=== PATIENT | male | born 1995 | race Caucasian/White ===

== ENCOUNTER 2021-06-25 16:05 | Emergency (ER) | payer BC, MEDICAID ==
[~2021-06-25] VITALS: Ht 182.9 cm; Wt 75.0 kg
[2021-06-25 16:22] VITALS: BP 119/89
[2021-06-25 18:12] LABS: BASOPHILS # (AUTO) 0.1 X10'3 (0-0.2); BASOPHILS % (AUTO) 1.1 % (0-1); EOSINOPHILS # (AUTO) 0.1 X10'3 (0-0.9); EOSINOPHILS % (AUTO) 1.5 % (0-6); HEMATOCRIT 47.5 % (42.0-52.0); HEMOGLOBIN 16.4 g/dl (14.0-17.9); LYMPHOCYTES # (AUTO) 3.1 X10'3 (1.1-4.8); LYMPHOCYTES % (AUTO) 34.1 % (21-51); MEAN CORPUSCULAR HEMOGLOBIN 31.6 PG (27.0-31.0); MEAN CORPUSCULAR HGB CONC 34.5 g/dL (33.0-36.5); MEAN CORPUSCULAR VOLUME 91.8 FL (78-98); MEAN PLATELET VOLUME 8.3 FL (7.4-10.4); MONOCYTES # (AUTO) 0.7 X10'3 (0-0.9); NEUTROPHILS % (AUTO) 55.3 % (42-75); PLATELET COUNT 310 X10'3 (140-440); RED BLOOD COUNT 5.17 X10'6 (4.70-6.10); RED CELL DISTRIBUTION WIDTH 13.9 % (11.5-14.5)
== END 2021-06-25 19:07 | disposition home or self-care (01) ==
LOC: ER 16:06
DX: J06.9 Acute upper respiratory infection, unspecified (principal); Z20.822 Contact with and (suspected) exposure to COVID-19; F17.200 Nicotine dependence, unspecified, uncomplicated
CPT/HCPCS: 36415; 71045; 85025; 87635; 99284; C9803

== ENCOUNTER 2021-08-09 19:07 | Emergency (ER) | payer BC, MEDICAID ==
[~2021-08-09] VITALS: Ht 182.9 cm; Wt 77.2 kg
[2021-08-09 20:21] LABS: BASOPHILS # (AUTO) 0.1 X10'3 (0-0.2); BASOPHILS % (AUTO) 0.8 % (0-1); EOSINOPHILS # (AUTO) 0.2 X10'3 (0-0.9); EOSINOPHILS % (AUTO) 2.2 % (0-6); HEMATOCRIT 42.4 % (42.0-52.0); HEMOGLOBIN 14.6 g/dl (14.0-17.9); LYMPHOCYTES # (AUTO) 3.3 X10'3 (1.1-4.8); LYMPHOCYTES % (AUTO) 39.9 % (21-51); MEAN CORPUSCULAR HEMOGLOBIN 31.5 PG (27.0-31.0); MEAN CORPUSCULAR HGB CONC 34.5 g/dL (33.0-36.5); MEAN CORPUSCULAR VOLUME 91.4 FL (78-98); MEAN PLATELET VOLUME 8.1 FL (7.4-10.4); MONOCYTES # (AUTO) 0.5 X10'3 (0-0.9); MONOCYTES % (AUTO) 6.4 % (2-12); NEUTROPHILS # (AUTO) 4.1 X10'3 (1.8-7.7); NEUTROPHILS % (AUTO) 50.7 % (42-75); PLATELET COUNT 259 X10'3 (140-440); RED BLOOD COUNT 4.64 X10'6 (4.70-6.10); RED CELL DISTRIBUTION WIDTH 13.7 % (11.5-14.5); WHITE BLOOD COUNT 8.2 X10'3 (4.5-11.0)
[2021-08-09 20:30] LABS: ALANINE AMINOTRANSFERASE 31 U/L (12-78); ALBUMIN 4.1 G/DL (3.4-5.0); ALBUMIN/GLOBULIN RATIO 1.1 (1.1-1.5); ALKALINE PHOSPHATASE 109 IU/L (46-116); ANION GAP 11 (8-16); ASPARTATE AMINO TRANSFERASE 21 U/L (10-37); BLOOD UREA NITROGEN 9 MG/DL (7-18); BUN/CREATININE RATIO 9.3 (5.4-32.0); CHLORIDE 107 MMOL/L (99-107); CREATININE 0.97 MG/DL (0.60-1.10); GLUCOSE 96 MG/DL (70-104); LIPASE 84 U/L (73-393); POTASSIUM 3.9 MMOL/L (3.5-5.1); SODIUM 145 MMOL/L (135-145); TOTAL CARBON DIOXIDE 27.4 MMOL/L (24-32); TOTAL PROTEIN 7.8 G/DL (6.4-8.2); eGFR > 90 ML/MIN
[2021-08-09 22:47] LABS: CLARITY,URINE SLIGHTLY CLOUDY (Clear); COLOR,URINE YELLOW (Yellow); PH,URINE 7.5 (4.8-8.0); UA COLLECTION TYPE URINAL
[2021-08-09 22:48] LABS: GLUCOSE, URINE NEGATIVE (Neg); KETONES,URINE TRACE mg/dl (Neg); LEUKOCYTE ESTERASE ,URINE NEGATIVE (Neg); NITRITES, URINE NEGATIVE (Neg); OCCULT BLOOD,URINE NEGATIVE (Neg); PROTEIN,URINE NEGATIVE (Neg); UROBILINOGEN,URINE 0.2 E.U/dL (0.2-1.0)
[2021-08-09 22:53] LABS: AMORPHOUS PHOSPHATES 2+; BACTERIA,URINE FEW /HPF (Neg); RBC,URINE NONE SEEN /HPF (0-2); SQUAMOUS EPITHELIAL CELL,UR FEW /LPF (FEW); WBC,URINE NONE SEEN /HPF (0-4)
[2021-08-09 22:56] VITALS: BP 127/83
[2021-08-10] MEDS ORDERED: METR-159 PO (00:37)
[2021-08-10] MEDS ORDERED: CIPR-259 PO (00:37)
== END 2021-08-10 01:02 | disposition home or self-care (01) ==
LOC: ER 19:07
DX: K52.9 Noninfective gastroenteritis and colitis, unspecified (principal); K42.9 Umbilical hernia without obstruction or gangrene; R10.84 Generalized abdominal pain; R11.0 Nausea; J45.909 Unspecified asthma, uncomplicated; F17.200 Nicotine dependence, unspecified, uncomplicated; F12.90 Cannabis use, unspecified, uncomplicated; Z90.89 Acquired absence of other organs; Z72.89 Other problems related to lifestyle; Z79.2 Long term (current) use of antibiotics
CPT/HCPCS: 36415; 74176; 80053; 81001; 83690; 85025; 99284

== ENCOUNTER 2021-09-30 11:01 | Emergency (ER) | payer BC, MEDICAID ==
[~2021-09-30] VITALS: Ht 182.9 cm; Wt 75.0 kg
--- NOTE | 2021-09-30 11:11 | NUR ---
pulling records from [facility]
[2021-09-30] MEDS ORDERED: ketorolac tromethamine 15mg/ml inj. IM ONE (11:25)
[2021-09-30] MEDS ORDERED: ketorolac trometh. 30mg/ml inj. IM ONE (11:30)
[2021-09-30] MEDS ORDERED: ondansetron 4mg rapidly disintigrating tab PO ONE (11:30)
[2021-09-30 11:45] LABS: BASOPHILS % (AUTO) 0.3 % (0-1); EOSINOPHILS # (AUTO) 0.3 X10'3 (0-0.9); EOSINOPHILS % (AUTO) 4.1 % (0-6); HEMATOCRIT 40.7 % (42.0-52.0); HEMOGLOBIN 14.6 g/dl (14.0-17.9); LYMPHOCYTES # (AUTO) 1.2 X10'3 (1.1-4.8); LYMPHOCYTES % (AUTO) 17.5 % (21-51); MEAN CORPUSCULAR HEMOGLOBIN 32.2 PG (27.0-31.0); MEAN CORPUSCULAR HGB CONC 35.9 g/dL (33.0-36.5); MEAN CORPUSCULAR VOLUME 89.8 FL (78-98); MEAN PLATELET VOLUME 7.8 FL (7.4-10.4); MONOCYTES # (AUTO) 0.3 X10'3 (0-0.9); MONOCYTES % (AUTO) 4.5 % (2-12); NEUTROPHILS # (AUTO) 5.1 X10'3 (1.8-7.7); NEUTROPHILS % (AUTO) 73.6 % (42-75); PLATELET COUNT 258 X10'3 (140-440); RED BLOOD COUNT 4.53 X10'6 (4.70-6.10); RED CELL DISTRIBUTION WIDTH 13.4 % (11.5-14.5); WHITE BLOOD COUNT 6.9 X10'3 (4.5-11.0)
[2021-09-30 12:00] LABS: ALANINE AMINOTRANSFERASE 55 U/L (12-78); ALBUMIN 3.7 G/DL (3.4-5.0); ALKALINE PHOSPHATASE 88 IU/L (46-116); ANION GAP 10 (8-16); ASPARTATE AMINO TRANSFERASE 17 U/L (10-37); BLOOD UREA NITROGEN 14 MG/DL (7-18); BUN/CREATININE RATIO 14.7 (5.4-32.0); CALCIUM 8.7 MG/DL (8.5-10.1); CHLORIDE 103 MMOL/L (99-107); CREATININE 0.95 MG/DL (0.60-1.10); GLUCOSE 98 MG/DL (70-104); LIPASE < 50 U/L (73-393); POTASSIUM 3.4 MMOL/L (3.5-5.1); SODIUM 140 MMOL/L (135-145); TOTAL CARBON DIOXIDE 26.7 MMOL/L (24-32); TOTAL PROTEIN 7.3 G/DL (6.4-8.2); eGFR > 90 ML/MIN
[2021-09-30 12:25] VITALS: BP 114/64
[2021-09-30 12:34] LABS: PLATELET ESTIMATE NORMAL; SPHEROCYTES FEW
[2021-09-30 12:35] LABS: STOMATOCYTES FEW
== END 2021-09-30 12:52 | disposition home or self-care (01) ==
LOC: ER 11:02
DX: K42.9 Umbilical hernia without obstruction or gangrene (principal); J45.909 Unspecified asthma, uncomplicated; F12.10 Cannabis abuse, uncomplicated
CPT/HCPCS: 36415; 80053; 83690; 85008; 85025; 96372; 99284; J1885

== ENCOUNTER 2023-01-27 16:03 | Emergency (ER) | payer MEDICAID ==
[~2023-01-27] VITALS: Ht 172.7 cm; Wt 79.5 kg
[2023-01-27 16:17] VITALS: BP 121/81
[2023-01-27 16:48] LABS: CLARITY,URINE CLEAR (Clear); COLOR,URINE YELLOW (Yellow); GLUCOSE, URINE NEGATIVE (Neg); KETONES,URINE TRACE mg/dl (Neg); LEUKOCYTE ESTERASE ,URINE NEGATIVE (Neg); NITRITES, URINE NEGATIVE (Neg); OCCULT BLOOD,URINE NEGATIVE (Neg); PROTEIN,URINE NEGATIVE (Neg)
[2023-01-27 16:52] LABS: UA COLLECTION TYPE NON-SPECIFIED
[2023-01-27] MEDS ORDERED: IBUP-1986 PO (18:01)
[2023-01-27] MEDS ORDERED: DOXY-1 PO (18:01)
== END 2023-01-27 18:14 | disposition home or self-care (01) ==
LOC: ER 16:05
DX: N45.1 Epididymitis (principal); J45.909 Unspecified asthma, uncomplicated; F12.90 Cannabis use, unspecified, uncomplicated; Z98.890 Other specified postprocedural states
CPT/HCPCS: 36415; 76870; 81003; 87491; 93976; 99284

== ENCOUNTER 2023-02-08 16:08 | Emergency (ER) | payer MEDICAID ==
[~2023-02-08] VITALS: Ht 182.9 cm; Wt 76.6 kg
[~2023-02-08 16:08] MED LIST: DOXY-1 PO; IBUP-1986 PO
[2023-02-08 16:16] VITALS: BP 141/81
--- NOTE | 2023-02-08 16:30 | NUR ---
Pt in [facility]. Pt c/o L foot pain x3 days. Pt states he is unable to walk on it. Pt educated to POC. Pt in agreement. Pending providers eval and treatment.
[2023-02-08] MEDS ORDERED: ketorolac trometh. 30mg/ml inj. IM ONE (17:29)
== END 2023-02-08 18:26 | disposition home or self-care (01) ==
LOC: ER 16:08
DX: M25.561 Pain in right knee (principal); M25.511 Pain in right shoulder; J45.909 Unspecified asthma, uncomplicated; F12.90 Cannabis use, unspecified, uncomplicated; Z98.890 Other specified postprocedural states
CPT/HCPCS: 73030; 73564; 96372; 99284; J1885

== ENCOUNTER 2023-02-13 15:37 | Emergency (ER) | payer MEDICAID ==
[~2023-02-13] VITALS: Ht 175.3 cm; Wt 110.0 kg
[~2023-02-13 15:37] MED LIST changes: -DOXY-1 PO
[2023-02-13 17:03] VITALS: BP 118/83
[2023-02-13 17:25] LABS: ALANINE AMINOTRANSFERASE 18 U/L (12-78); ALBUMIN 3.1 G/DL (3.4-5.0); ALBUMIN/GLOBULIN RATIO 0.7 (1.1-1.5); ALKALINE PHOSPHATASE 86 IU/L (46-116); ANION GAP 13 (8-16); ASPARTATE AMINO TRANSFERASE 11 U/L (10-37); BILIRUBIN,TOTAL 1.7 MG/DL (0.1-1.0); BLOOD UREA NITROGEN 8 MG/DL (7-18); BUN/CREATININE RATIO 10.5 (10.0-20.0); C-REACTIVE PROTEIN 17.81 MG/DL (0.0-0.5); CALCIUM 8.8 MG/DL (8.5-10.1); CHLORIDE 98 MMOL/L (99-107); CREATININE 0.76 MG/DL (0.60-1.10); GLUCOSE 86 MG/DL (70-104); POTASSIUM 3.1 MMOL/L (3.5-5.1); SODIUM 133 MMOL/L (135-145); TOTAL CARBON DIOXIDE 21.7 MMOL/L (24-32); TOTAL PROTEIN 7.4 G/DL (6.4-8.2); eGFR > 90 ML/MIN
[2023-02-13 17:54] LABS: HEMATOCRIT 41.2 % (42.0-52.0); HEMOGLOBIN 14.6 g/dl (14.0-17.9); MEAN CORPUSCULAR HEMOGLOBIN 31.7 PG (27.0-31.0); MEAN CORPUSCULAR HGB CONC 35.4 g/dL (33.0-36.5); MEAN CORPUSCULAR VOLUME 89.7 FL (78-98); RED BLOOD COUNT 4.59 X10'6 (4.70-6.10); WHITE BLOOD COUNT 11.7 X10'3 (4.5-11.0)
[2023-02-13 17:55] LABS: EOSINOPHILS % (AUTO) 0.3 % (0-6); LYMPHOCYTES % (AUTO) 18.7 % (21-51); MONOCYTES % (AUTO) 3.5 % (2-12); NEUTROPHILS % (AUTO) 77.1 % (42-75); PLATELET COUNT 319 X10'3 (140-440)
[2023-02-13 17:56] LABS: BASOPHILS % (AUTO) 0.4 % (0-1); HIV ANTIBODY 1&2 RAPID NON-REACTIVE (Neg); LYMPHOCYTES # (AUTO) 2.2 X10'3 (1.1-4.8); MONOCYTES # (AUTO) 0.4 X10'3 (0-0.9); NEUTROPHILS # (AUTO) 9.1 X10'3 (1.8-7.7)
[2023-02-13] MEDS ORDERED: triamcinolone acetonide 40mg/ml inj IM ONE (18:45)
[2023-02-13] MEDS ORDERED: famotidine 20mg tablet PO ONE (18:45)
[2023-02-13] MEDS ORDERED: diphenhydrAMINE 25mg capsule PO ONE (18:45)
[2023-02-13] MEDS ORDERED: HYDROcodone/acetaminophen 10/325mg tab PO ONE (18:45)
[2023-02-13] MEDS ORDERED: DIPH25CA83 PO (18:55)
[2023-02-13] MEDS ORDERED: DEC4T PO (18:55)
[2023-02-13] MEDS ORDERED: FAMO-128 PO (18:55)
[2023-02-13] MEDS ORDERED: HYDR-3965 PO (18:55)
[2023-02-14] MEDS ORDERED: DIPH25CA83 PO (00:23)
[2023-02-14] MEDS ORDERED: FAMO-128 PO (00:23)
[2023-02-14] MEDS ORDERED: DEC4T PO (00:23)
[2023-02-14] MEDS ORDERED: HYDR-3965 PO (00:23)
== END 2023-02-13 19:21 | disposition home or self-care (01) ==
LOC: ER 15:37
DX: R21 Rash and other nonspecific skin eruption (principal); M79.10 Myalgia, unspecified site; R10.9 Unspecified abdominal pain
CPT/HCPCS: 36415; 80053; 84145; 85025; 85651; 86140; 86703; 96372; 99284; J3301; Q0163

== ENCOUNTER 2023-02-27 21:59 | Emergency (ER) | payer MEDICAID ==
[~2023-02-27] VITALS: Ht 182.9 cm; Wt 83.2 kg
[~2023-02-27 21:59] MED LIST changes: +DEC4T PO; +DIPH25CA83 PO; +FAMO-128 PO; +HYDR-3965 PO
--- NOTE | 2023-02-27 22:48 | NUR ---
dr. rojas at bedside assessing patient
--- NOTE | 2023-02-27 22:52 | NUR ---
at bedside assessing patient
[2023-02-27] MEDS ORDERED: iohexol 350MG/ML 100ml bottle IV ONE (23:15)
[2023-02-28 00:36] VITALS: BP 136/85
== END 2023-02-28 00:38 | disposition home or self-care (01) ==
LOC: ER 22:01
DX: R59.1 Generalized enlarged lymph nodes (principal); R07.9 Chest pain, unspecified; J45.909 Unspecified asthma, uncomplicated; F12.10 Cannabis abuse, uncomplicated; Z90.49 Acquired absence of other specified parts of digestive tract; Z79.899 Other long term (current) drug therapy
CPT/HCPCS: 70491; 71275; 99285; J3490; Q9967

== ENCOUNTER 2023-04-24 13:49 | Emergency (ER) | payer MEDICAID ==
[~2023-04-24] VITALS: Ht 180.3 cm; Wt 190.0 kg
[2023-04-24 14:16] VITALS: BP 120/80
[2023-04-24] MEDS ORDERED: ketorolac trometh inj. 60 MG/2 ML VIAL IM ONE (15:05)
== END 2023-04-24 15:31 | disposition home or self-care (01) ==
LOC: ER 13:50
DX: M25.461 Effusion, right knee (principal); M25.561 Pain in right knee; F17.200 Nicotine dependence, unspecified, uncomplicated; J45.909 Unspecified asthma, uncomplicated; F12.10 Cannabis abuse, uncomplicated; Z79.899 Other long term (current) drug therapy; W19.XXXA Unspecified fall, initial encounter; Y93.89 Activity, other specified; Y92.89 Other specified places as the place of occurrence of the external cause; Y99.8 Other external cause status
CPT/HCPCS: 73564; 96372; 99283; J1885

== ENCOUNTER 2024-10-26 19:44 | Emergency (ER) | payer MEDICAID, OTHER ==
[~2024-10-26] VITALS: Ht 180.3 cm; Wt 84.1 kg
[2024-10-27] MEDS: ketorolac trometh 30MG/ML vial 30 MG/ML VIAL IM ONE (00:04)
[2024-10-27 00:39] VITALS: BP 130/82; PULSE 90; RESP 16; TEMP 98.6; O2SAT 99
== END 2024-10-27 00:41 | disposition home or self-care (01) ==
LOC: ER 19:45
DX: M79.672 Pain in left foot (principal); M25.572 Pain in left ankle and joints of left foot; J45.909 Unspecified asthma, uncomplicated; F12.90 Cannabis use, unspecified, uncomplicated; Z90.49 Acquired absence of other specified parts of digestive tract
CPT/HCPCS: 73610; 73630; 96372; 99284; J1885; A6449

== ENCOUNTER 2025-06-18 18:10 | Emergency (ER) | payer MEDICAID ==
[~2025-06-18] VITALS: Ht 180.3 cm; Wt 91.9 kg
[2025-06-18 18:17] VITALS: BP 147/94; PULSE 96; RESP 16; O2SAT 98
--- NOTE | 2025-06-18 20:14 | RADIOLOGY REPORT ---
EXAM: DI WRIST, COMPLETE (3VW MIN) INDICATION: left wrist pain TECHNIQUE: 4 views of the left wrist COMPARISON: DI FOOT, COMPLETE (3VW MIN) on DOS: 10/26/24 FINDINGS/IMPRESSION: No radiographic evidence of an acute osseous abnormality. There is no acute fracture, osseous malalig nment, or aggressive focal osseous lesion. There is no radiographically apparent joint space narrowin g.
--- NOTE | 2025-06-18 20:15 | RADIOLOGY REPORT ---
EXAM: DI ANKLE, COMPLETE(3VW MIN) INDICATION: left wrist and ankle pain TECHNIQUE: 3 views of the left ankle COMPARISON: DI ANKLE, COMPLETE(3VW MIN) on DOS: 10/26/24 FINDINGS/IMPRESSION: No radiographic evidence of an acute osseous abnormality. There is no acute fracture, osseous malalig nment, or aggressive focal osseous lesion. There is no radiographically apparent joint space narrowin g.
--- NOTE | 2025-06-18 20:19 | Physician Documentation ---
History of Present Illness ~ Chief Complaint: Mechanical Fall Stated Complaint: FALL Time Seen by MD: 19:42 Primary Medical Doctor: None Source: patient Mode of Arrival: POV Exam Limitations: no limitations HPI This is a 30-year-old male who presented after falling through a deck just prior to arrival. He states he was smoking a cigarette outside his apartment and his right leg went through boards on a deck now complaining of left wrist, left elbow, left knee and left ankle pain. He is ambulatory with a limp to the left leg. He complains of pain shooting from his wrist to his elbow. No significant swelling or ecchymosis. States his left knee had some ecchymosis that has resolved. No pain on the right. Was asked, but otherwise denies review of systems. Tetanus within 5 Years?: No Medication Reconciliation Allergies: Coded Allergies: No Known Allergies (Unverified , 10/26/24) Scheduled Dexamethasone* (Decadron*), 1 TAB PO DAILY Diphenhydramine HCl (Benadryl), 1 CAP PO QID Famotidine (Pepcid), 1 TAB PO Q12H Hydrocodone Bit/Acetaminophen 5/325 MG ([place] 5/325 MG), 1 TABLET PO BID Ibuprofen (Ibuprofen), 1 TAB PO Q8H Past Medical History Past Medical History: No Pertinent History, Asthma, Hernia Past Surgical History: appendectomy Alcohol Use: Rarely Drug Use: marijuana Lives with: Other Lives In: Home Occupation: employed Review of Systems ROS Complains of left wrist, left elbow, left knee and left ankle pain. Otherwise, review of systems is negative. Physical Exam Vital Signs: RN Vital Signs have been reviewed: Yes, Temperature: 97.2, Source: Temporal, Heart Rate: 96, Respiratory Rate: 16, BP: 147/94, Pulse Oximetry: 98, Weight: 91.900 Pulse Oximetry Reflects: adequate oxygenation Physical Exam General: Awake, alert, oriented. No apparent distress Chest: Normal shape and size. No accessory muscle use. Extremities: Left elbow minimal pain with palpation. No ecchymosis or swelling. No obvious deformity. Left wrist pain with palpation over the lateral aspect of the wrist. Normal range of motion. No swelling. No ecchymosis. Left knee without ecchymosis or swelling. Normal range of motion. Left ankle pain with palpation especially over the medial malleolus. There is a limp with ambulation. Otherwise, CMS is intact in all extremities. Neurologic: Alert and oriented x4. Nonfocal Psychiatric: Normal mood and affect. Skin: Normal color. Warm and dry. Progress Results/Orders Results/Orders Orders - MARIA BLANKENSHIP NP Ankle, Complete(3vw Min) (06/18/25 19:51) Wrist, Complete (3vw Min) (06/18/25 19:51) Completed Orders - MARIA BLANKENSHIP NP Ankle, Complete(3vw Min) (06/18/25 19:51) Wrist, Complete (3vw Min) (06/18/25 19:51) * Miscellaneous Nursing Orders (06/18/25 20:21) Vital Signs 06/18/25 06/18/25 18:17 20:25 Temp 97.2 97.2 Pulse 96 Resp 16 B/P (MAP) 147/94 Pulse Ox 98 EKG/XRAY/CT/US/VASC/MRI Bone/Soft Tissue X-Ray (Ext.) : Interpreted By: both Views: 3 VIEW Indication: pain Location: wrist, ankle Impression: normal Additional Comment [facility] [address] [place] [address] DIAGNOSTIC RADIOLOGY Patient: LAMAR NAVARRO Medical Record: [id number] [facility] : 1995, Age: 30 Sex: Male Location: ER Patient Status: REG ER Service Date/Time: 06/18/251950 Ordering Physician: MARIA BLANKENSHIP NP Exam: WRIST, COMPLETE (3VW MIN) EXAM: DI WRIST, COMPLETE (3VW MIN) INDICATION: left wrist pain TECHNIQUE: 4 views of the left wrist COMPARISON: DI FOOT, COMPLETE (3VW MIN) on DOS: 10/26/24 FINDINGS/IMPRESSION: No radiographic evidence of an acute osseous abnormality. There is no acute fracture, osseous malalignment, or aggressive focal osseous lesion. There is no radiographically apparent joint space narrowing. Electronically Signed by:ANJELICA ORTEZ MD Date & Time: 06/18/252011 Dictated by: ANJELICA ORTEZ MD Dictation date and time: 06/18/252000 Primary Care Provider: NO PRIMARY CARE PROVIDER cc: MARIA BLANKENSHIP ACCOUNT CLERK ~ [address] [address] DIAGNOSTIC RADIOLOGY Patient: LAMAR NAVARRO Medical Record: [id number] [facility] : 1995, Age: 30 Sex: Male Location: ER Patient Status: [facility] ER Service Date/Time: 06/18/251950 Ordering Physician: MARIA BLANKENSHIP NP Exam: ANKLE, COMPLETE(3VW MIN) EXAM: DI ANKLE, COMPLETE(3VW MIN) INDICATION: left wrist and ankle pain TECHNIQUE: 3 views of the left ankle COMPARISON: DI ANKLE, COMPLETE(3VW MIN) on DOS: 10/26/24 FINDINGS/IMPRESSION: No radiographic evidence of an acute osseous abnormality. There is no acute fracture, osseous malalignment, or aggressive focal osseous lesion. There is no radiographically apparent joint space narrowing. Electronically Signed by:ANJELICA ORTEZ MD Date & Time: 06/18/252011 Dictated by: ANJELICA ORTEZ MD Dictation date and time: 06/18/252000 Primary Care Provider: NO PRIMARY CARE PROVIDER cc: MARIA BLANKENSHIP NP ~ Medical Decision Making Findings Patient presented with complaints of pain on his left after his right lower extremity falling through a deck and catching himself with the left side of his body. States left wrist pain that radiates up to his elbow. CMS is intact on exam. No ecchymosis or swelling. No obvious deformity. Given his complaints of pain and statements of previous fracture to the left wrist his wrist was x- rayed. There is no evidence of acute fracture or dislocation. He complained of left knee pain without obvious deformity. No ecchymosis or swelling. No evidence of fracture dislocation or mechanism consistent with such injury. He furthermore complained of left ankle pain. He does have a limp on exam and pain with palpation. No ecchymosis, swelling or obvious deformity. X-ray was wi thout acute fracture or dislocation. Discharged home with rice instructions. Encouraged to follow up with primary care provider. Differential Dx:Considerations: Include: Fracture(s), Spine injury, Contusion(s), Laceration(s) Departure Time of Disposition: 20:19 Disposition: HOME / SELF CARE / HOMELESS Impression: Primary Impression: Fall Qualified Codes: W19.XXXA - Unspecified fall, initial encounter Additional Impressions: Wrist pain Qualified Codes: M25.532 - Pain in left wrist Left ankle strain Qualified Codes: S96.912A - Strain of unspecified muscle and tendon at ankle and foot level, left foot, initial encounter Discharge Instructions: RICE Therapy for Routine Care of Injuries Additional Instructions: Your x-rays do not reveal any acute fracture, dislocation of the wrist or ankle on the left. Recommend rest, ice, elevation and compression. Please return for new or worsening symptoms. Take Tylenol/ibuprofen as needed for pain at home. Referrals: NO PRIMARY CARE PROVIDER (PCP) Education Educated: Patient Educated regarding: diagnosis, treatment, need for follow up Signature Scribe Signature: No scribe Attestation: The note accurately reflects work and decisions made by me.Maria Mathias NP 06/18/25 20:34 MARIA BLANKENSHIP NP Jun 18, 2025 20:19
[2025-06-18 20:25] VITALS: TEMP 97.2
== END 2025-06-18 20:26 | disposition home or self-care (01) ==
LOC: ER 18:11
DX: S96.912A Strain of unspecified muscle and tendon at ankle and foot level, left foot, initial encounter (principal); M25.532 Pain in left wrist; M25.522 Pain in left elbow; F17.210 Nicotine dependence, cigarettes, uncomplicated; Z90.49 Acquired absence of other specified parts of digestive tract; W19.XXXA Unspecified fall, initial encounter; Y93.89 Activity, other specified; Y92.039 Unspecified place in apartment as the place of occurrence of the external cause; Y99.8 Other external cause status
CPT/HCPCS: 73110; 73610; 99284